=== PATIENT | male | born 1975 | race Hispanic/Latino ===

== ENCOUNTER 2020-10-23 15:43 | Inpatient (IN) | payer SELFPAY ==
[2020-10-23] MEDS ORDERED: Nitroglycerin 2% Ointment 1 INCH/1 GM Packet ONE (15:58)
--- NOTE | 2020-10-23 16:04 | RAD ---
Chest one view HISTORY: Chest pain. FINDINGS: Cardiac silhouette and pulmonary vasculature are unremarkable. Mediastinum is midline. No confluent airspace consolidation or evidence of pneumothorax. IMPRESSION : No abnormalities are demonstrated.
[2020-10-23 16:17] LABS: #Basophils 0.1 thou/uL (0.0-0.2); #Eosinphils 0.3 thou/uL (0.0-0.7); #Lymphocytes 3.3 thou/uL (1.20-3.40); #Monocytes 0.5 thou/uL (0.11-0.59); #Neutrophils 4.4 thou/uL (1.40-6.50); %Basophils 0.8 % (0.0-1.0); %Eosinophils 3.5 % (0.0-10.0); %Lymphocytes 37.9 % (21.0-51.0); %Monocytes 6.1 % (0.0-10.0); %Neutrophils 51.7 % (42.0-75.0); Hemoglobin 15.6 g/dL (14.0-18.0); Mean Corpuscular HGB CONC 33.8 g/dL (32.0-36.0); Mean Corpuscular Volume 94.9 fL (78.0-98.0); Mean Platelet Volume 8.2 fL (7.4-10.4); Platelet Count 227 thou/uL (130-400); RBC Distribution Width 11.4 % (11.5-14.5); Red Blood Cell (RBC) Count 4.86 mill/uL (4.70-6.10); White Blood Cell (WBC) Count 8.6 thou/uL (4.8-10.8)
[2020-10-23 16:41] LABS: ALT (SGPT) 25 U/L (8-55); AST (SGOT) 18 U/L (5-34); Albumin 4.2 g/dL (3.5-5.0); Alkaline Phosphatase 62 U/L (40-110); Anion Gap 13 mmol/L (10-20); BUN (Urea Nitrogen) 15 mg/dL (8.9-20.6); Bilirubin, Total 0.4 mg/dL (0.2-1.2); CK (CPK) 308 U/L (30-200); Calc. Creatinine Clearance 0 mL/min (70-130); Calcium 8.9 mg/dL (7.8-10.44); Carbon Dioxide 25 mmol/L (22-29); Chloride 104 mmol/L (98-107); Globulin 3.3 g/dL (2.4-3.5); Glucose 86 mg/dL (70-105); Lipase 25 U/L (8-78); Potassium 4.2 mmol/L (3.5-5.1); Protein, Total 7.5 g/dL (6.0-8.3); Sodium 138 mmol/L (136-145)
[2020-10-23] MEDS ORDERED: Acetaminophen 325 MG TAB PO PRN (16:56)
[2020-10-23] MEDS ORDERED: Ondansetron ODT 4 MG TAB PO PRN (16:56)
[2020-10-23] MEDS ORDERED: Senokot S 8.6-50 MG TAB PO PRN (16:56)
[2020-10-23] MEDS ORDERED: Acetaminophen 650 MG Suppository PR PRN (16:56)
[2020-10-23] MEDS ORDERED: Enoxaparin Sodium 60 MG/0.6 ML SYRINGE ONE (17:49)
[2020-10-23] MEDS ORDERED: Acetaminophen 500 MG TAB ONE (17:50)
[2020-10-23] MEDS ORDERED: Nitroglycerin 0.4 MG TAB (25 Tab Bottle) SL PRN (18:07)
[2020-10-23] MEDS ORDERED: Aspirin 81 mg Enteric Coated Tablet PO SCH (18:15)
[2020-10-23 18:40] LABS: Cardiac Risk 6.6 (Less than 4.5); Cholesterol 239 mg/dl (< 200 Desired); HDL Cholesterol 36 mg/dL (>60 Neg Risk); Triglycerides 598 mg/dL (Less than 150)
--- NOTE | 2020-10-23 18:43 | HP ---
CHIEF COMPLAINT: Chest pain. HISTORY OF PRESENT ILLNESS: A 45-year-old male with a history of hypertension and hyperlipidemia, presenting with the chest pain. A few weeks ago he had some back pain, he noted. However, last night, he started to have a sharp left-sided chest pain, radiating to the jaw and the left arm. He was nauseated this morning. Also felt quite dizzy. The patient did not check his blood pressure. He does have a history of hypertension and hyperlipidemia. No prior history of myocardial infarction. No syncope. He is stressed out emotionally as his father with a massive SC roughly a month ago at age 75. The patient smokes about 8 cigarettes a day and occasional alcohol use. REVIEW OF SYSTEMS: 13-point review of systems reviewed with the patient and pertinents addressed in the history of present illness, rest are negative. No recent fever, night sweats, chills, productive cough, orthopnea, PND, or lower extremity edema. No emesis, abdominal pain, hematuria, dysuria, or hematochezia. Denies headache, tingling, or numbness in his extremities. No weakness in his extremities. No polyuria or polydipsia. No rash in the body. He is quite devastated with his father's demise. ALLERGIES: HE HAS NO KNOWN DRUG ALLERGY. PAST MEDICAL HISTORY: Hypertension and hyperlipidemia. MEDICATIONS: Not completed yet, but he states that he takes some blood pressure medication as well as cholesterol pill. SOCIAL HISTORY: He smokes 8 cigarettes a day. Drinks alcohol occasionally. FAMILY HISTORY: Father due to massive SC at age 75. Mother is diabetic. PHYSICAL EXAMINATION: VITAL SIGNS: He is afebrile, normotensive. He is saturating 95% in the room air. GENERAL: He does not appear toxic. HEENT: Pupils are equal, round, and reactive to light. Anicteric. Mucous membranes moist. CARDIOVASCULAR: Regular rate and rhythm without murmurs, rubs, or gallops. LUNGS: Clear to auscultation bilaterally without wheezing, rales, or rhonchi. ABDOMEN: Soft, nontender, nondistended. Good bowel sounds. EXTREMITIES: Without pitting edema. No rash. PSYCHIATRIC: Appropriate mood and affect. LABORATORY DATA AND IMAGING: His CBC in the normal range. His D-dimer less than 0.27. His CMP panel in the normal range except creatine kinase of 308. His first set of troponin is 0.01. BNP 10. Lipase 25. EKG, normal sinus rhythm. Chest x-ray, negative for any infiltrate. IMPRESSION AND PLAN: A 45-year-old male with a history of hypertension and hyperlipidemia, presenting with the chest pain. Concerning for unstable angina. We will get a serial troponin. Follow up with a TSH, A1c, and lipid panel. His symptoms are intermittent, cardiac markers are negative, will schedule him for nuclear stress test in the morning. Keep him n.p.o. after midnight. DVT prophylaxis with Lovenox. He got therapeutic dose in the ER. We will continue with b.i.d. until the stress test rules out ischemia. Job ID: [id number] MTDD
[2020-10-23 19:34] LABS: Troponin I Less than 0.010 ng/mL (< 0.028)
[2020-10-23 20:43] VITALS: BMI 36.4
[2020-10-23] MEDS: Famotidine 20 MG TAB PO SCH (20:43)
[2020-10-23] MEDS ORDERED: Atorvastatin Calcium 20 MG TAB PO SCH (21:00)
[2020-10-23] MEDS: Enoxaparin Sodium 120 MG/0.8 ML SYRINGE SC SCH ×2 (21:32→21:37)
[2020-10-23 22:30] LABS: Troponin I Less than 0.010 ng/mL (< 0.028)
[2020-10-24 02:55] LABS: SARS-CoV-2 MS2 Positive; SARS-CoV-2 N Gene Negative; SARS-CoV-2 S Gene Negative; SARS-CoV-2 by NAA Not Detected (NotDetected); SARS-CoV-2 orf1ab Negative
[2020-10-24 04:55] LABS: Hemoglobin A1c 5.2 % (4.0-6.0)
[2020-10-24 05:11] LABS: Anion Gap 14 mmol/L (10-20); BUN (Urea Nitrogen) 14 mg/dL (8.9-20.6); Calc. Creatinine Clearance 149 mL/min (70-130); Calcium 8.5 mg/dL (7.8-10.44); Carbon Dioxide 23 mmol/L (22-29); Chloride 104 mmol/L (98-107); Glucose 82 mg/dL (70-105); Sodium 137 mmol/L (136-145)
[2020-10-24 05:15] LABS: Band 1 % (5-11); Hemoglobin 14.9 g/dL (14.0-18.0); Lymphocytes 44 % (21-51); MDiff Complete? YES; Mean Corpuscular HGB CONC 33.5 g/dL (32.0-36.0); Mean Corpuscular Hemoglobin 31.7 pg (27.0-31.0); Mean Corpuscular Volume 94.7 fL (78.0-98.0); Monocytes 2 % (0-10); Neutrophil 46 % (42-75); Platelet Count 206 thou/uL (130-400); Platelet Morphology Comment Appears Adequate; RBC Distribution Width 11.5 % (11.5-14.5); RBC Morphology Normal; Reactive Lymphocytes 7 % (0-10); Red Blood Cell (RBC) Count 4.71 mill/uL (4.70-6.10); White Blood Cell (WBC) Count 8.8 thou/uL (4.8-10.8)
[2020-10-24] MEDS: Enoxaparin Sodium 120 MG/0.8 ML SYRINGE SC SCH ×2 (08:00→21:13)
[2020-10-24] MEDS: Aspirin 81 mg Enteric Coated Tablet PO SCH (08:01)
[2020-10-24] MEDS: Famotidine 20 MG TAB PO SCH ×2 (08:01→21:13)
--- NOTE | 2020-10-24 11:16 | NM ---
EXAM: Nuclear medicine cardiac perfusion examination with ejection fraction HISTORY: Chest pain TECHNIQUE: Rest images: 10.2 mCi technetium 99m sestamibi Stress images: 31.2 mCi of technetium 99m sestamibi; Adenosine COMPARISON: None FINDINGS: Tomographic images: There is a small sized, moderate intensity reversible perfusion defect involving the anterolateral wall extending to the apex. Gated images: Normal wall motion and ejection fraction of 44%. EDV: 173 mL LHR: 0.7 TID: 1.1 IMPRESSION: Anterolateral/apical ischemia
--- NOTE | 2020-10-24 14:21 | PDOC.HOSPP ---
- Subjective Encounter Date: 10/24/20 Encounter Time: 14:15 Subjective: f/u for unstable angina with abnormal stress test in the anteroapical region showing reversible ischemia. Received Lovenox/ASA. No current CP. - Objective Vital Signs & Weight: Vital Signs (12 hours) Temp Pulse Resp BP Pulse Ox 10/24/20 11:19 97.9 F 59 L 20 132/76 98 10/24/20 07:09 98.1 F 49 L 16 142/82 H 97 10/24/20 03:48 97.8 F 62 15 141/65 H 98 Weight Weight 261 lb 4 oz Result Diagrams: 10/24/20 04:06 10/24/20 04:06 Additional Labs: Laboratory Tests 10/23/20 10/23/20 10/23/20 16:00 16:00 16:04 Troponin I Triglycerides 598 H Cholesterol 239 H HDL Cholesterol 36 Lipase 25 TSH 3rd Generation 0.1948 L 10/23/20 10/23/20 10/23/20 16:04 19:01 21:58 Troponin I Less than 0.010 Less than 0.010 Less than 0.010 Triglycerides Cholesterol HDL Cholesterol Lipase TSH 3rd Generation Radiology Reviewed by me: Yes (STERILE TECH - EF 44%, reversible ischemia in anteroapical region) EKG Reviewed by me: Yes (Tele - SR) Hospitalist ROS - Medication Medications: Active Medications Generic Name Dose Route Start Last Admin Trade Name Freq PRN Reason Stop Dose Admin Acetaminophen 650 mg 10/23/20 16:56 10/23/20 20:44 Acetaminophen 325 Mg Tab PO 650 mg Q4H PRN Administration Headache/Fever/Mild Pain (1-3) Aspirin 81 mg 10/24/20 09:00 10/24/20 08:01 Aspirin 81 Mg Enteric Coated Tablet PO 81 mg DAILY SULY Administration Atorvastatin Calcium 20 mg 10/23/20 21:00 10/23/20 20:43 Atorvastatin Calcium 20 Mg Tab PO 20 mg HS SULY Administration Enoxaparin Sodium 120 mg 10/24/20 09:00 10/24/20 08:00 Enoxaparin Sodium 120 Mg/0.8 Ml Syringe SC 120 mg 0900,2100 SULY Administration Famotidine 20 mg 10/23/20 21:00 10/24/20 08:01 Famotidine 20 Mg Tab PO 20 mg BID SULY Administration - Exam General Appearance: NAD, awake alert Eye: PERRL, anicteric sclera ENT: normocephalic atraumatic, no oropharyngeal lesions Neck: supple, symmetric, no JVD, no thyromegaly, no lymphadenopathy Heart: RRR, no murmur, no gallops, no rubs, normal peripheral pulses Heart - other findings: S1, S2 Respiratory: CTAB, no wheezes, no rales, no ronchi, normal chest expansion, no tachypnea Gastrointestinal: soft, non-tender, non-distended, normal bowel sounds, no palpa ble masses Extremities: no cyanosis, no clubbing, no edema Skin: normal turgor, no lesions Neurological: cranial nerve grossly intact, no new deficit Musculoskeletal: normal tone, normal strength, no muscle wasting Psychiatric: normal affect, A&O x 3 Hosp A/P (1) Unstable angina Status: Acute Plan: STERILE TECH with reversible ischemia, Consult Cardiology for consideration of heart cath, Lovenox/ASA (2) HTN (hypertension) Code(s): I10 - ESSENTIAL (PRIMARY) HYPERTENSION Status: Chronic Qualifiers: Hypertension type: essential hypertension Qualified Code(s): I10 - Essenti al (primary) hypertension Plan: Continue Lisinopril 10mg HS (3) HLD (hyperlipidemia) Code(s): E78.5 - HYPERLIPIDEMIA, UNSPECIFIED Status: Chronic Plan: Continue Lipitor 40mg HS (4) Hyperthyroidism Code(s): E05.90 - THYROTOXICOSIS, UNSP WITHOUT THYROTOXIC CRISIS OR STORM Status: Suspected Plan: ? hyperthyroidism, check Free T4 - Plan plan discussed w/ family, social scientist, incentive spirometry, out of bed/ambulate, DVT proph w/SCDs Stable overall Consult Cardiology for heart cath Continue ASA Increase Lipitor 40mg HS NPO after MN Lovenox 120mg BID, last dose this pm AM lab: Free T4
[2020-10-24] MEDS ORDERED: Communication Order-Pharmacy FS SCH (16:15)
--- NOTE | 2020-10-24 16:34 | CON ---
DATE OF CONSULTATION: REASON FOR CONSULTATION: Abnormal stress study and chest pain. HISTORY OF PRESENT ILLNESS: Mr. Aviles is a 45-year-old gentleman with previous history of tobacco abuse, who recently presented with chest pain, dizziness, lightheadedness, in addition to nausea, vomiting, and weakness. He underwent a noninvasive stress study, which was found to be positive for ischemia noted to the anterolateral wall of the apex. LVEF also diminished. PAST MEDICAL HISTORY: Tobacco abuse, hypertension, hyperlipidemia. SOCIAL HISTORY: Positive for tobacco use. Positive for alcohol use. He currently works in a refinery. FAMILY HISTORY: Positive for CAD. REVIEW OF SYSTEMS: A 10-point review of systems is reviewed and is as above, otherwise negative. PHYSICAL EXAMINATION: GENERAL: Patient is a pleasant male who is in no acute distress. The patient appears their stated age. VITAL SIGNS: Blood pressure 145/87, pulse 55, temperature 97.4. NEUROLOGIC: The patient is alert and oriented x3 with no focal neurologic deficits. HEENT: Sclerae without icterus. Mouth has moist mucous membranes with normal pallor. NECK: No JVD. Carotid upstroke brisk. No bruits bilaterally. LUNGS: Clear to auscultation with unlabored respirations. BACK: No scoliosis or kyphosis. CARDIAC: Regular rate and rhythm with normal S1 and S2. No S3 or S4 noted. No significant rubs, murmurs, thrills, or gallops noted throughout the precordium. PMI is not displaced. There is no parasternal heave. ABDOMEN: Soft, nontender, nondistended. No peritoneal signs present. No hepatosplenomegaly. No abnormal striae. EXTREMITIES: 2+ femoral and 2+ dorsalis pedis pulses. No cyanosis, clubbing, or edema. SKIN: No gross abnormalities. PERTINENT LABS: Include a hemoglobin of 14.9, hematocrit of 44.6, platelet count 206. Creatinine 1.05, potassium 4.0. Troponin negative. Noninvasive stress study as above with LVEF estimated at 44%. IMPRESSION: 1. Chest pain. 2. Abnormal stress test. 3. Tobacco abuse. RECOMMENDATIONS: Mr. Aviles's symptoms certainly suggest angina and could suggest unstable angina. His stress study was positive for ischemia. Discussed medical therapy versus proceeding with coronary angiography. I discussed the procedure in full detail with Mr. Aviles. The risks of the procedure were also discussed. The risks of the procedure include but are not limited to the following: , stroke, [place], need for emergency surgery, loss of limb, bleeding, and infection, as well as a reaction to the dye causing kidney failure and needing long-term dialysis. I also discussed the risks of PCI to include all of the above including coronary dissection and perforation in addition to acute stent thrombosis and restenosis. All questions about the procedure were answered. Given the above, the patient agreed to proceed with coronary angiography and possible PCI. He gave consent. All questions were answered. I also discussed drug-coated stent placement versus nondrug-coated stent placement. There were no contraindications to proceed if needed. Further recommendations will be pending the above. Job ID: [id number]
[2020-10-24] MEDS ORDERED: Melatonin 3 MG TAB PO PRN (19:58)
[2020-10-24] MEDS ORDERED: Atorvastatin Calcium 40 MG TAB PO SCH (21:00)
[2020-10-24] MEDS ORDERED: Lisinopril 10 MG TAB PO SCH (21:00)
[2020-10-25 05:00] VITALS: TEMP 98.1
[2020-10-25] MEDS ORDERED: Sodium Chloride 0.9% 1,000 ML IV SCH ×2 (06:00→07:45)
[2020-10-25] MEDS: Famotidine 20 MG TAB PO SCH (06:33)
[2020-10-25] MEDS: Aspirin 81 mg Enteric Coated Tablet PO SCH (06:33)
[2020-10-25] MEDS ORDERED: Verapamil 5 MG/2 ML VIAL ONE (06:46)
[2020-10-25] MEDS ORDERED: Nitroglycerin 100MG/250ML BOT 250 ML ONE (06:46)
[2020-10-25] MEDS ORDERED: Heparin 10,000 UNITS/ 10 ML VIAL ONE (06:46)
[2020-10-25] MEDS ORDERED: Midazolam HCl 2 mg/2 ml Vial ONE (07:24)
[2020-10-25] MEDS ORDERED: Fentanyl 100 MCG/2 ML VIAL ONE (07:25)
[2020-10-25] MEDS ORDERED: Nitroglycerin 0.4 MG TAB (25 Tab Bottle) SL PRN (07:37)
[2020-10-25] MEDS ORDERED: Acetaminophen/Codeine 30-300mg Tablet PO PRN ×2 (07:37)
[2020-10-25] MEDS ORDERED: Sodium Chloride 0.9% 200 ML IV PRN (07:37)
--- NOTE | 2020-10-25 12:39 | DIS ---
DATE OF ADMISSION: 10/24/2020 DATE OF DISCHARGE: 10/25/2020 DISCHARGE DIAGNOSES: 1. Chest pain, noncardiac. 2. Hypertension, stable. 3. Hyperlipidemia. CONSULTATIONS: Dr. Ulises Pineda with Cardiology Service. PERTINENT LABORATORY AND X-RAY FINDINGS: Troponin-I negative x3. BNP less than 10. Total cholesterol 239, triglycerides 598, HDL 36, LDL not calculated. TSH 0.195, free T4 level 1.02. CBC within normal limits. D-dimer less than 0.27. COVID-19 PCR not detected on 10/23/2020. Portable chest x-ray dated on 10/23/2020 showed no acute process. Cardiolite stress test dated on 10/24/2020 showed moderate intensity, reversible perfusion defect of the anterior lateral wall extending to the apex with calculated ejection fraction of 44%. Cardiac catheterization dated on 10/25/2020 showed normal coronary anatomy. HOSPITAL COURSE: The patient was admitted to the telemetry unit after initially presenting with chest pain with associated risk factors including hypertension, hyperlipidemia, and family history. The patient underwent serial troponin-I, which was negative x3 proceeding to Cardiolite stress testing showing evidence of reversible ischemia at the anterolateral wall extending to the apex. Due to these findings, Cardiology was consulted, at which point, the patient underwent cardiac catheterization on 10/25/2020 showing normal coronary anatomy. Likely, the patient's presentation musculoskeletal in nature. The patient was noted with poorly controlled lipid panel with recommendations to increase Lipitor to 40 mg daily. Overall, the patient did remain clinically stable during the hospital course, tolerating regular oral intake with stable vital signs. I have examined the patient and discussed followup instructions. The patient verbalized understanding and agreement, ready for discharge on 10/25/2020. DISCHARGE MEDICATIONS: 1. Enteric-coated aspirin 81 mg p.o. daily. 2. Lipitor 40 mg p.o. at bedtime. 3. Lisinopril 10 mg p.o. at bedtime. FOLLOWUP: The patient may follow up with his primary care provider, Amanda Infante. CONDITION ON DISCHARGE: Stable. ACTIVITY: Ad-antony. DIET: Heart healthy. CODE STATUS: Full. DISPOSITION: To home on 10/25/2020. Job ID: [id number]
[2020-10-25] MEDS ORDERED: Iopamidol 370 76% 100 ML VIAL ONE (13:28)
[2020-10-25 16:18] VITALS: BP 107/55
== END 2020-10-25 13:05 | disposition home or self-care (01) | DRG 287 ==
LOC: ERS 15:43 → 2NO 17:21 → OBSVTOIN 10-24 14:31
PROVIDERS: ADMIT Internal Medicine; ATTEND Internal Medicine
PROC: 4A023N7 Measurement of Cardiac Sampling and Pressure, Left Heart, Percutaneous Approach (ICD-10-PCS; principal; 2020-10-25)
PROC: B2111ZZ Fluoroscopy of Multiple Coronary Arteries using Low Osmolar Contrast (ICD-10-PCS; 2020-10-25)
DX: R07.89 Other chest pain (principal); Z20.822 Contact with and (suspected) exposure to COVID-19; I10 Essential (primary) hypertension; E78.5 Hyperlipidemia, unspecified; F17.210 Nicotine dependence, cigarettes, uncomplicated; R94.39 Abnormal result of other cardiovascular function study; Z79.899 Other long term (current) drug therapy
CPT/HCPCS: 36415; 71045; 78452; 80048; 80053; 80061; 82550; 83036; 83690; 83880; 84439; 84443; 84484; 85025; 85379; 87635; 93005; 93017; 93458; 96372; 99152; 99153; A9500; G0378; J1644; J1650; J2250; J3010; U0003